=== PATIENT | female | born 1995 | race Caucasian/White ===

== ENCOUNTER 2017-07-02 11:34 | Emergency (ER) | payer OTHER ==
[~2017-07-02] VITALS: Ht 165.1 cm; Wt 52.0 kg
[~2017-07-02 11:34] MED LIST: CALC600T5 PO; IRON45TA2 PO; PREN1TAB17 PO; PREN1TAB62 PO
[2017-07-02 11:37] VITALS: Ht 165.1 cm; Wt 52.0 kg
[2017-07-02] MEDS ORDERED: LIDOCAINE/MYLANTA 40 ML BTL PO STA (11:55)
[2017-07-02] MEDS ORDERED: FAMOTIDINE 20 MG TAB PO STA (11:55)
[2017-07-02] MEDS ORDERED: PRENAT PO (12:27)
[2017-07-02] MEDS ORDERED: FAMO20TA18 PO (12:27)
--- NOTE | 2017-07-02 12:39 | ERD ---
ER Documentation Chief Complaint Date/Time DATE: 07/02/17 TIME: 12:37 Chief Complaint Complains of abdominal pain since last HPI This is a 22-year-old female who presents to the emergency room complaining of epigastric abdominal discomfort. She describes mild burning epigastrium that started yesterday evening. This is usually brought on by food intake. The patient states similar episodes in the past when she was . Her last menstrual period was approximately 2 months ago. She denies any lower abdominal pain or cramping or bleeding. The patient does describe a history of very irregular periods. ROS All systems reviewed and are negative except as per history of present illness. Medications Home Meds Active Scripts Famotidine* (Famotidine*) 20 Mg Tablet, 20 MG PO BID Y for reflux, #60 TAB Prov:ASHWINI MARIE MD 07/02/17 Multivit/Min/Fol Ac/Iron/Pren* ( S*) 1 Tab Tab, 1 TAB PO DAILY, #30 TAB Prov:ASHWINI MARIE MD 07/02/17 Reported Medications Vit-Iron Fumarate-FA ( Vitamin Tablet) 1 Each Tablet, 1 TAB PO DAILY, TAB 11/22/16 Calcium Carbonate (CALCIUM) 600 Mg Tablet, 600 MG PO DAILY 09/18/13 Iron,Carbonyl (IRON) 45 Mg Tablet, 45 MG PO DAILY 09/18/13 Vit-Iron Fumarate-FA ( Tablet) 1 Each Tablet, 1 EACH PO DAILY 09/18/13 Allergies Allergies: Coded Allergies: No Known Allergy (Unverified , 11/22/16) PMhx/Soc Medical and Surgical Hx: pt denies Medical Hx History of Surgery: Yes () Anesthesia Reaction: No Hx Neurological Disorder: No Hx Respiratory Disorders: No Hx Cardiac Disorders: No Hx Psychiatric Problems: No Hx Miscellaneous Medical Probl: No Hx Alcohol Use: No Hx Substance Use: No Hx Tobacco Use: No Smoking Status: Never smoker FmHx Family History: No diabetes Physical Exam Vitals Vital Signs Date Time Temp Pulse Resp B/P Pulse Ox O2 Delivery O2 Flow Rate FiO2 07/02/17 11:37 97.8 59 20 102/56 97 Physical Exam General: Well developed, well nourished, no acute distress Head: Normocephalic, atraumatic. Eyes: Pupils equally reactive, EOM intact ENT: Moist mucous membranes Neck: Supple, no lymphadenopathy Respiratory: Lungs clear bilaterally, no distress Cardiovascular: RRR, no murmurs, rubs, or gallops Abdominal: Soft, non-tender, non-distended, no peritoneal signs, negative Cameron sign, no tenderness to McBurney's point : Deferred MSK: No edema, no unilateral swelling, 5/5 strength Neurologic: Alert and oriented, moving all extremities, normal speech, no focal weakness, no cerebellar signs Skin: No rash Psych: Normal mood Results 24 hrs Current Medications Medications (Trade) Dose Ordered Sig/Cassie Route PRN Reason Start Time Stop Time Status Last Admin Dose Admin Famotidine (Pepcid) 20 mg ONCE STAT PO 07/02/17 11:55 07/02/17 11:58 DC 07/02/17 12:28 Miscellaneous Medication (Gi Cocktail (2)) 40 ml ONCE STAT PO 07/02/17 11:55 07/02/17 11:58 DC 07/02/17 12:28 Procedures/MDM LAB INTERPRETATION: Positive hCG MEDICAL DECISION MAKING: The patient presents with epigastric abdominal discomfort that is most consistent with likely dyspepsia. She has a benign abdominal exam without signs or symptoms of acute cholecystitis, choledocholithiasis or biliary colic. No indication for laboratory testing. The patient does describe similar symptoms with in the past. She has a history of irregular menstrual cycle. ER COURSE: The patient has a positive hCG here. She has a benign abdominal exam with no lower abdominal cramping and no vaginal bleeding. No indication for laboratory testing or ultrasound imaging at this time. No clinical signs of ectopic . The patient was advised to follow-up with primary HOMOGENIZER OPERATOR. She was advised to initiate vitamins and will be started on Pepcid. Pepcid is a class B medication. The patient was given a GI cocktail with improved symptomatology. The patient is safe for discharge at this time. I kept the patient and/or family informed of laboratory and diagnostic imaging results throughout the emergency room course. DISPOSITION PLAN: We discussed follow up with the patient's primary care doctor within 24 to 48 hours as needed. We also discussed return to the emergency room for worsening symptoms or worsening condition. Outpatient referral: HOMOGENIZER OPERATOR Discharge Medications: Pepcid Departure Diagnosis: Primary Impression: Weeks of gestation: unspecified Qualified Code: Z33.1 - , unspecified gestational age Additional Impression: Dyspepsia Condition: Stable Patient Instructions: Gastroesophageal Reflux Disease (GERD), , New Dx Referrals: [facility] YOU HAVE RECEIVED A MEDICAL SCREENING EXAM AND THE RESULTS INDICATE THAT YOU DO NOT HAVE A CONDITION THAT REQUIRES URGENT TREATMENT IN THE EMERGENCY DEPARTMENT. FURTHER EVALUATION AND TREATMENT OF YOUR CONDITION CAN WAIT UNTIL YOU ARE SEEN IN YOUR DOCTORS OFFICE WITHIN THE NEXT 1-2 DAYS. IT IS YOUR RESPONSIBILITY TO MAKE AN APPOINTMENT FOR FOLOW-UP CARE. IF YOU HAVE A PRIMARY DOCTOR --you should call your primary doctor and schedule an appointment IF YOU DO NOT HAVE A PRIMARY DOCTOR YOU CAN CALL OUR PHYSICIAN REFERRAL HOTLINE AT IF YOU CAN NOT AFFORD TO SEE A PHYSICIAN YOU CAN CHOSE FROM THE FOLLOWING [facility] [address] [facility]. [facility] [address] [facility]. [facility] [address] [facility] [address] [facility] [address] [facility]. [facility] [address] [facility]. [facility] YOU HAVE RECEIVED A MEDICAL SCREENING EXAM AND THE RESULTS INDICATE THAT YOU DO NOT HAVE A CONDITION THAT REQUIRES URGENT TREATMENT IN THE EMERGENCY DEPARTMENT. FURTHER EVALUATION AND TREATMENT OF YOUR CONDITION CAN WAIT UNTIL YOU ARE SEEN IN YOUR DOCTORS OFFICE WITHIN THE NEXT 1-2 DAYS. IT IS YOUR RESPONSIBILITY TO MAKE AN APPOINTMENT FOR FOLOW-UP CARE. IF YOU HAVE A PRIMARY DOCTOR --you should call your primary doctor and schedule and appointment IF YOU DO NOT HAVE A PRIMARY DOCTOR YOU CAN CALL OUR PHYSICIAN REFERRAL HOTLINE AT . IF YOU CAN NOT AFFORD TO SEE A PHYSICIAN YOU CAN CHOSE FROM THE FOLLOWING [facility] INSTITUTIONS: [facility] [address] [place] [address] [facility] [address] [place] [address] [facility] [address] [place] [address] HOMOGENIZER OPER[place]BL[place] [address] [facility] [address] [place] [address] OFFICE FAX , [address] [address] [place] [address] [address]. GONZALEZ, [place] [address] [place] [address] DR GUILLORY, [facility] [address] [address] [facility], [address], [facility] [address] [address] ORDAZ, [facility] [address] [facility], [place] [address] [facility] [address] [place] [address] [phone] [facility] [address] - [address] PLUMMER ANGELITA [address], [place] [address] DR BHATT, [facility] [address] [facility]. [address], [place] [address] [facility] [address] [place], [place] [address] Additional Instructions: Call your primary care doctor TOMORROW for an appointment during the next 1 WEEK.Tell the sales secretary that you were referred from this facility.See the doctor sooner or return here if your condition worsens before your appointment time. ASHWINI MARIE MD Jul 02, 2017 12:39
== END 2017-07-02 12:36 | disposition home or self-care (01) ==
LOC: FTE 11:34
DX: R10.13 Epigastric pain (principal); Z33.1 Pregnant state, incidental
CPT/HCPCS: Z7610 ×2; 99283

== ENCOUNTER 2017-07-31 09:59 | Outpatient (CLI) | payer OTHER ==
[~2017-07-31] VITALS: Ht 154.9 cm; Wt 52.9 kg
[~2017-07-31 09:59] MED LIST changes: +FAMO20TA18 PO; +PRENAT PO
[2017-07-31 10:37] VITALS: Ht 154.9 cm; Wt 52.9 kg
[2017-07-31 10:38] VITALS: BP 112/56; PULSE 74; RESP 18
[2017-07-31 11:11] LABS: BASOPHILS % 0.2 % (0.0-2.0); EOSINOPHILS % 0.3 % (0.0-7.0); HEMOGLOBIN 11.4 g/dl (12.0-16.0); LYMPHOCYTES # 1.2 10^3/ul (0.8-2.9); LYMPHOCYTES % 10.1 % (15.0-51.0); MEAN CORPUSCULAR HEMOGLOBIN 30.6 pg (29.0-33.0); MEAN CORPUSCULAR HGB CONC 34.5 g/dl (32.0-37.0); MEAN CORPUSCULAR VOLUME 88.7 fl (82.0-101.0); MEAN PLATELET VOLUME 11.4 fl (7.4-10.4); MONOCYTE # 0.5 10^3/ul (0.3-0.9); MONOCYTES % 4.1 % (0.0-11.0); NEUTROPHILS % 84.9 % (39.0-77.0); PLATELET COUNT 213 10^3/UL (140-415); RED BLOOD COUNT 3.72 10^6/ul (4.20-5.40); RED CELL DISTRIBUTION WIDTH 13.1 % (11.5-14.5); WHITE BLOOD COUNT 11.3 10^3/ul (4.8-10.8)
[2017-07-31 11:17] LABS: ADD UMIC YES; UR ASCORBIC ACID NEGATIVE (NEGATIVE); UR BACTERIA MODERATE /HPF (NONE SEEN); UR BILIRUBIN (Dip) NEGATIVE (NEGATIVE); UR BLOOD (Dip) 3+ mg/dL (NEGATIVE); UR CLARITY SLIGHTLY CLOUDY (CLEAR); UR COLOR RED (YELLOW); UR GLUCOSE (Dip) NEGATIVE (NEGATIVE); UR KETONES (Dip) NEGATIVE (NEGATIVE); UR LEUKOCYTE ESTERASE (Dip) 3+ Leu/ul (NEGATIVE); UR NITRITE (Dip) NEGATIVE (NEGATIVE); UR RBC 52 /HPF (0-5); UR SPECIFIC GRAVITY (Dip) 1.003 (1.003-1.030); UR TOTAL PROTEIN (Dip) 2+ mg/dl (NEGATIVE); UR UROBILINOGEN (Dip) NEGATIVE (NEGATIVE); UR WBC CLUMPS FEW /HPF (NONE SEEN)
[2017-07-31 11:32] LABS: BARBITURATES Negative (NEGATIVE); BENZODIAZEPINES Negative (NEGATIVE); CANNABINOIDS Negative (NEGATIVE); COCAINE Negative (NEGATIVE); OPIATES Negative (NEGATIVE)
[2017-07-31 11:42] LABS: ALBUMIN/GLOBULIN RATIO 1.17; BILIRUBIN,INDIRECT 0.9 mg/dl (0-1.1); BILIRUBIN,TOTAL 0.9 mg/dl (0.2-1.3); CALCIUM 9.2 mg/dl (8.4-10.2); CREATININE 0.58 mg/dl (0.44-1.00); POTASSIUM 3.5 mmol/L (3.5-5.1); TOTAL PROTEIN 7.4 g/dl (6.1-8.1)
--- NOTE | 2017-07-31 11:58 | RADRPT ---
PROCEDURE: US OB AND ULTRASOUND CERVIX. CLINICAL INDICATION: Size and dates , no care TECHNIQUE: Multiple sonographic images of the pelvis and gravid uterus were obtained. The images were reviewed on a PACS workstation. Transvaginal images of the cervix were also obtained. COMPARISON: No prior studies are available for comparison. FINDINGS: The internal os is dilated to 7 mm. There is soft tissue material noted near the region of the inte rnal os. The cervix length measures 1.5 cm. There is a single viable intrauterine gestation. Cardiac activity is present with 144 beats per min isis. There is a transverse maternal left presentation. The placenta is posterior fundal. There is no evidence for an abruption or placenta previa. Measurements were made in order to determine age. The results are as follows: BPD =4.3 cm HC =16.4 cm AC =13.6 cm FL =2.8 cm Estimated gestational age of approximately 18 weeks and 6 days based on ultrasound measurements. The estimated date of delivery is 12/26/17, based on ultrasound measurements. The EFW = 257 g. RPTAT: AA IMPRESSION: Single viable intrauterine gestation of approximately 18 weeks and 6 days based on ultrasound measu rements. Internal os is dilated to 7 mm. Small amount of soft tissue noted in the region of the internal os. Cervix is short measuring 1.5 cm in length. .Ray Rowley MD, MD Date Time Electronically viewed and signed by .Ray Rowley MD, MD on 07/31/2017 11:58 .S/
--- NOTE | 2017-07-31 12:33 | TRIAGE ---
OB Triage Datetime Report Generated by CPN: 07/31/2017 12:32 Datetime: 07/31/2017 11:00 Heart Rate Monitor Mode: Doppler Comments: FHT'S DOPPLED IN THE 150'S. Datetime: 07/31/2017 10:32 Labor Evaluation Monitor Mode: External Datetime: 07/31/2017 10:26 Assessment Type: Triage Maternal Assessment Level of Consciousness: Fully Conscious DTR's/Clonus: DTRs 2+; No Clonus Headache: Denies Blurred Vision: No Respiratory Effort: Unlabored; Regular Rhythm; Equal Expansion Breath Sounds, Left: Clear and Equal Breath Sounds, Right: Clear and Equal Nausea/Vomiting: Denies RUQ Epigastric Pain: Denies Lower Extremities Edema: None Degree: None Upper Extremities Edema: None Degree: None Facial Edema: None Fall Risk Assessment History of Falling: (0) No Secondary Diagnosis: (0) No Ambulatory Aid: (0) Bedrest/Nurse Assist IV Therapy: (0) No Gait: (0) Normal/Bedrest/Immobile Mental Status: (0) Oriented to Own Ability Fall Score: 0 Fall Risk Score Definition: No Risk: No action required Datetime: 07/31/2017 10:24 Time of Arrival: 07/31/2017 09:51 EGA: 25.0 Arrived By: Ambulatory Arrived From: Home Chief Complaint: PT HERE C/O VAG. PRESSURE AND BLEEDING WITH URINATION Movement: Absent Contractions: Denies/Absent Rupture of Membranes: Denies Vaginal Bleeding: None Vaginal Discharge: Denies Recent Sexual Intercouse: Denies Abdominal Trauma: Not Applicable Patient Complaints: None Time Provider Notified: 07/31/2017 10:15 Provider Notified: FOROOHAR Initial Plan: EFW, CVL, UA, CBC, CMP Datetime: 07/31/2017 10:19 Vaginal Exam Dilatation (cms): 1.0 Exam By: FOROOHAR Datetime: 07/31/2017 10:13 Labor Evaluation Monitor Mode: External Heart Rate Monitor Mode: External US Comments: unable to obtain FHT'S ON NOTIFIED U/S. ORDERED.
--- NOTE | 2017-07-31 12:59 | CONS ---
Date/Time of Note Date/Time of Note DATE: 07/31/17 TIME: 12:44 Consultation Date/Type/Reason Admit Date/Time July 31, 2017 OB triage consult Reason for Consultation . This patient is a 22 years old 4 para 2 1 who does not know exactly how far she is she came in due to pressure and burning with urination On examination she appears to be a woman in no acute distress. Her main complaint is lower abdominal pain and a slightly back pain and pinkish vaginal discharge Her general vital signs are normal with blood pressure of 112/56, pulse rate of 74 respiration 18, temperature 98.4, and oxygen saturation, 98% in room temperature Her abdomen is soft slight tenderness of the suprapubic area heart tone is audible fundus measures about 19 cm no CVA tenderness on pelvic examination the external office was open however the internal loss close the uterus appears to be about 20 weeks size Laboratory Tests Test 07/31/17 09:15 07/31/17 10:48 Urine Color RED Urine Clarity SLIGHTLY CLOUDY Urine pH 7.0 Urine Specific [place] 1.003 Urine Ketones NEGATIVEmg/dL Urine Nitrite NEGATIVEmg/dL Urine Bilirubin NEGATIVEmg/dL Urine Urobilinogen NEGATIVEmg/dL Urine Leukocyte Esterase 3+Carol/ul Urine Microscopic RBC 52/HPF Urine Microscopic WBC 170/HPF Urine Bacteria MODERATE/HPF Urine Hemoglobin 3+mg/dL Urine Glucose NEGATIVEmg/dL Urine Total Protein 2+mg/dl Urine Opiates Screen Negative Urine Barbiturates Negative Urine Amphetamines Screen Negative Urine Benzodiazepines Screen Negative Urine Cocaine Screen Negative Urine Cannabinoids Negative White Blood Count 11.310^3/ul Red Blood Count 3.7210^6/ul Hemoglobin 11.4g/dl Hematocrit 33.0% Mean Corpuscular Volume 88.7fl Mean Corpuscular Hemoglobin 30.6pg Mean Corpuscular Hemoglobin Concent 34.5g/dl Red Cell Distribution Width 13.1% Platelet Count 57378^3/UL Mean Platelet Volume 11.4fl Neutrophils % 84.9% Lymphocytes % 10.1% Monocytes % 4.1% Eosinophils % 0.3% Basophils % 0.2% Nucleated Red Blood Cells % 0.0/100WBC Neutrophils # (Manual) 9.610^3/ul Lymphocytes # 1.210^3/ul Monocytes # 0.510^3/ul Eosinophils # 0.010^3/ul Basophils # 0.010^3/ul Nucleated Red Blood Cells # 0.010^3/ul Sodium Level 140mmol/L Potassium Level 3.5mmol/L Chloride Level 106mmol/L Carbon Dioxide Level 24mmol/L Anion Gap 14 Blood Urea Nitrogen 9mg/dl Creatinine 0.58mg/dl Glucose Level 80mg/dl Calcium Level 9.2mg/dl Total Bilirubin 0.9mg/dl Direct Bilirubin 0.00mg/dl Indirect Bilirubin 0.9mg/dl Aspartate Amino Transf (AST/SGOT) 18IU/L Alanine Aminotransferase (ALT/SGPT) 22IU/L Alkaline Phosphatase 68IU/L Total Protein 7.4g/dl Albumin 4.0g/dl Globulin 3.40g/dl Albumin/Globulin Ratio 1.17 Constitutional: No chills, No diaphoresis, No disoriented, No febrile, No improved, No no complaints, No other, No poor po, No requiring IVF, No requiring O2 Eyes: No discharge, No no complaints, No other, No pain, No redness, No visual change ENT: No bleeding, No congestion, No discharge, No dysphagia, No no complaints, No other, No pain, No sore throat Respiratory: No cough, No no complaints, No other, No pain, No pleuritic pain, No shortness of breath, No sputum, No wheezing Cardiovascular: No chest pain, No edema, No lightheadedness, No no complaints, No orthopenea, No other, No palpitations, No paroxysmal nocturnal dyspnea Gastrointestinal: other (As I mentioned the cervix is about less than 1 finger dilated no bloody discharge on examination the uterus appears to be around 20 weeks size), No blood, No constipation, No decreased appetite, No diarrhea, No flatus, No nausea, No no complaints, No pain, No passing stool, No vomiting Genitourinary: No bleeding, No discharge, No dysuria, No flank pain, No hematuria, No no complaints, No other Musculoskeletal: No back pain, No bone/joint pain, No neck pain, No no complaints, No other, No restricted range of motion, No swelling Skin: No bruising, No erythema, No laceration, No no complaints, No other, No pruritis, No rash, No skin lesions Neurologic: No confusion, No dizziness, No focal-weakness, No headache, No no complaints, No other, No seizure, No syncope Endocrine: No dry skin, No no complaints, No other, No polydypsia, No polyuria , No temp intolerance Additional Comments On ultrasound study the report with intrauterine with gestational age of about 18 weeks and 6 days a single viable intrauterine gestation with cardiac activity 144 bpm the cervical length was 1.5 cm estimated weight was 257 g With these finding a prescription was given for Macrobid 100 mg tablet #20 to be taken 1 tablet every 12 hours. The urine specimen was sent for culture and sensitivity. Patient is advised to contact the clinic for the result of the culture and sensitivity with possible change of antibiotic if indicated. Also she was advised to find her doctor started her care and give these results of the urine test to her new position. End of dictation thank you Social History Smoking Status: Never smoker Exam/Review of Systems Vital Signs Vitals Vital Signs Date Time Temp Pulse Resp B/P Pulse Ox O2 Delivery O2 Flow Rate FiO2 07/31/17 10:38 74 18 112/56 98 Room Air Results Result Diagram: 07/31/17 1048 07/31/17 1048 Results 24 hrs Laboratory Tests Test 07/31/17 09:15 07/31/17 10:48 Urine Color RED Urine Clarity SLIGHTLY CLOUDY A Urine pH 7.0 Urine Specific [place] 1.003 Urine Ketones NEGATIVE Urine Nitrite NEGATIVE Urine Bilirubin NEGATIVE Urine Urobilinogen NEGATIVE Urine Leukocyte Esterase 3+ H Urine Microscopic RBC 52 H Urine Microscopic WBC 170 H Urine Bacteria MODERATE Urine Hemoglobin 3+ H Urine Glucose NEGATIVE Urine Total Protein 2+ H Urine Opiates Screen Negative Urine Barbiturates Negative Urine Amphetamines Screen Negative Urine Benzodiazepines Screen Negative Urine Cocaine Screen Negative Urine Cannabinoids Negative White Blood Count 11.3 #H Red Blood Count 3.72 #L Hemoglobin 11.4 #L Hematocrit 33.0 #L Mean Corpuscular Volume 88.7 Mean Corpuscular Hemoglobin 30.6 Mean Corpuscular Hemoglobin Concent 34.5 Red Cell Distribution Width 13.1 Platelet Count 213 Mean Platelet Volume 11.4 H Neutrophils % 84.9 H Lymphocytes % 10.1 L Monocytes % 4.1 Eosinophils % 0.3 Basophils % 0.2 Nucleated Red Blood Cells % 0.0 Neutrophils # (Manual) 9.6 H Lymphocytes # 1.2 Monocytes # 0.5 Eosinophils # 0.0 Basophils # 0.0 Nucleated Red Blood Cells # 0.0 Sodium Level 140 Potassium Level 3.5 Chloride Level 106 Carbon Dioxide Level 24 Anion Gap 14 Blood Urea Nitrogen 9 Creatinine 0.58 Glucose Level 80 Calcium Level 9.2 Total Bilirubin 0.9 Direct Bilirubin 0.00 Indirect Bilirubin 0.9 Aspartate Amino Transf (AST/SGOT) 18 Alanine Aminotransferase (ALT/SGPT) 22 Alkaline Phosphatase 68 Total Protein 7.4 Albumin 4.0 Globulin 3.40 H Albumin/Globulin Ratio 1.17 JONE GUILLORY MD Jul 31, 2017 12:54
== END 2017-07-31 12:40 | disposition home or self-care (01) ==
LOC: OBT 09:59 → L-D 09:59 → OBT 12:40
DX: O26.842 Uterine size-date discrepancy, second trimester (principal); Z3A.18 18 weeks gestation of pregnancy
CPT/HCPCS: 36415; 76815; 76817; 80053; 80307; 81001; 85025; 87086; Z7500; G0463

== ENCOUNTER 2017-08-08 21:03 | Inpatient (IN) | payer OTHER ==
[~2017-08-08] VITALS: Ht 152.4 cm; Wt 55.3 kg
[2017-08-08 21:19] VITALS: Ht 152.4 cm; Wt 55.3 kg
[2017-08-08 21:20] VITALS: BP 108/63; PULSE 71; RESP 18
[2017-08-08] MEDS ORDERED: CEPH500C PO (21:23)
[2017-08-08] MEDS ORDERED: METHYLERGONOVINE 0.2 MG INJ IM PRN (22:30)
[2017-08-08] MEDS ORDERED: LIDOCAINE 1% (MPF) 30 ML INJ INJ PRN (22:30)
[2017-08-08] MEDS ORDERED: OXYTOCIN 30 UNITS/LR 500 ML IV PRN (22:30)
[2017-08-08] MEDS ORDERED: CARBOPROST 250 MCG INJ IM PRN (22:30)
[2017-08-08] MEDS ORDERED: LACTATED RINGER'S 1,000 ML IV PRN (22:30)
[2017-08-08] MEDS ORDERED: IBUPROFEN 600 MG TAB PO PRN (22:30)
[2017-08-08] MEDS ORDERED: MISOPROSTOL 200 MCG TAB PR PRN (22:30)
[2017-08-08] MEDS ORDERED: OXYTOCIN 30 UNITS/LR 500 ML IV SCH (22:30)
--- NOTE | 2017-08-08 22:40 | HP ---
Date/Time of Note Date/Time of Note DATE: 08/08/17 TIME: 22:40 OB - History Hx of Present Free Text/Dictation 08/08/2017 Chief Complaint: Feels a bulge inside the vagina and pelvic pressure. Estimated Due Date: Aug 25, 2017 : 4 Para: 2 Spontaneous : 1 Care: None Other Concerns: 32-year-old with IUP at 20 weeks and 1 day with no care presented to the hospital with a complaint of feeling bulge in the introitus and vaginal canal when she wipes herself as well as leaking some fluid. She had been seen about a week ago in triage with complaint of spotting and was noted to have UTI. She was sent home with Keflex. Cervical length at that time was 1.5 cm. KELVIN by only ultrasound is December 25 2017. Patient just sent up for her first visit next week. Had no care labs or any evaluation done before. Past Family/Social History * Past Medical, Surgical, Family and Obstetric Histories reviewed from chart. OB Admission Exam Vital Signs Vital Signs Vital Signs Date Time Temp Pulse Resp B/P Pulse Ox O2 Delivery O2 Flow Rate FiO2 08/08/17 21:20 98.4 71 18 108/63 Room Air Physical Exam HEENT: WNL Abdomen: WNL Extremities: Normal Cervical Dilatation: 9cm Effacement: Other (80%) Station: Other (BBOW at + 2 station noted. Nitrzaine Equivocal. Pooling negative. ) Membranes: Intact OB Assessment/Plan Other Assessment: IUP at 20 weeks and 1 day inevitable due to advanced cervical dilatation Cervical incompetence. Nonviable I have discussed with the patient in detail about current physical exam findings Options including expectant management with a spontaneous expulsion of productive conception versus placing the patient in Trendelenburg position with expectant management, with possible increased risk of spontaneous rupture of membrane at pre-viability risk of infections and complications discussed with the patient So option for Pitocin augmentation discussed with the patient Not a candidate for rescue cerclage at this point Pros and cons of each discussed in detail Increased risk of complication of with premature rupture membrane at extreme prematurity discussed with the patient Verbalized understanding above discussion Desires to proceed with expectant management Will be admitted Labs including CBC type and screen IV fluids Expectant management SALONI HOLCOMB MD Aug 08, 2017 22:40
[2017-08-08] MEDS: LACTATED RINGER'S 1,000 ML IV SCH (23:07)
--- NOTE | 2017-08-08 23:32 | TRIAGE ---
OB Triage Datetime Report Generated by CPN: 08/08/2017 23:31 Datetime: 08/08/2017 23:20 Assessment Type: Admission Assessment Vaginal Bleeding: None Maternal Assessment Level of Consciousness: Fully Conscious DTR's/Clonus: DTRs 2+; No Clonus Headache: Denies Blurred Vision: No Respiratory Effort: Unlabored; Regular Rhythm; Equal Expansion Breath Sounds, Left: Clear and Equal Breath Sounds, Right: Clear and Equal Nausea/Vomiting: Denies RUQ Epigastric Pain: Denies Lower Extremities Edema: None Degree: None Upper Extremities Edema: None Degree: None Facial Edema: None Fall Risk Assessment History of Falling: (0) No Secondary Diagnosis: (0) No Ambulatory Aid: (0) Bedrest/Nurse Assist IV Therapy: (0) No Gait: (0) Normal/Bedrest/Immobile Mental Status: (0) Oriented to Own Ability Fall Score: 0 Fall Risk Score Definition: No Risk: No action required Pain Assessment Pain Scale: 0 Pain Presence: None/Denies Pain Type: N/A Pain Goal: 2 Membrane Status: Bulging Datetime: 08/08/2017 22:49 Labor Evaluation Frequency: NONE Monitor Mode: External Resting Tone [place]: Relaxed Heart Rate FHR Baseline Rate: 150 Monitor Mode: External US Variability: Moderate 6-25 bpm Decelerations: None Category: Category I Datetime: 08/08/2017 22:00 Labor Evaluation Frequency: NONE Monitor Mode: External Pattern: Normal: <= 5 Contractions in 10 Minutes Resting Tone [place]: Relaxed Heart Rate FHR Baseline Rate: 150 Variability: Minimal - Undetectable to <=5 bpm Accelerations: 15X15 Decelerations: Variable Category: Category I Comments: APPROPRIATE FOR GESTATIONAL AGE Pain Presence: None/Denies Datetime: 08/08/2017 21:44 Vaginal Exam Dilatation (cms): 9.5 Effacement (%): 90 Station: 2 Exam By: ZHANG Membrane Status: Bulging Pool: Negative Nitrazine: Negative Cervix, Consistency: Soft Cervix, Position: Midposition Presentation 'A': Unable to Assess Datetime: 08/08/2017 21:29 Time of Arrival: 08/08/2017 21:00 EGA: 20.0 Arrived By: Wheelchair Arrived From: Home Chief Complaint: PATIENT STATES THAT WHEN SHE WIPES SHE CONSTANTLY HAD FLUID COMING OUT. SHE ALSO FEELS A SOFT BALLOON LIKE OBJECT IN HER VAGINAL CANAL Contractions: Denies/Absent Rupture of Membranes: Unsure Vaginal Bleeding: None Vaginal Discharge: Denies Recent Sexual Intercouse: Denies Abdominal Trauma: Not Applicable Patient Complaints: Other Time Provider Notified: 08/08/2017 21:14 Provider Notified: ZHANG Initial Plan: STERILE SPEC, VAGINAL EXAM Datetime: 08/08/2017 21:14 Stage of : OB Triage Assessment Type: Triage Temperature Route: Oral Pain Assessment Pain Scale: 0 Pain Presence: None/Denies Datetime: 08/08/2017 21:11 Maternal Assessment Level of Consciousness: Fully Conscious DTR's/Clonus: DTRs 2+; No Clonus Headache: Denies Blurred Vision: No Respiratory Effort: Unlabored; Regular Rhythm; Equal Expansion Breath Sounds, Left: Clear and Equal Breath Sounds, Right: Clear and Equal Nausea/Vomiting: Denies RUQ Epigastric Pain: Denies Facial Edema: None Fall Risk Assessment History of Falling: (0) No Secondary Diagnosis: (0) No Ambulatory Aid: (0) Bedrest/Nurse Assist IV Therapy: (0) No Gait: (0) Normal/Bedrest/Immobile Mental Status: (0) Oriented to Own Ability Fall Score: 0 Fall Risk Score Definition: No Risk: No action required Monitor Mode: External Contraction Comments: MONITORS APPLIED Monitor Mode: External US Comments: MONITORS APPLIED Datetime: 07/31/2017 12:30 Stage of : OB Triage Maternal Assessment Level of Consciousness: Fully Conscious Labor Evaluation Frequency: NONE Monitor Mode: External Resting Tone [place]: Relaxed Pain Assessment Pain Scale: 3 Pain Goal: 3 Membrane Status: Intact Vaginal Bleeding: None Datetime: 07/31/2017 11:30 Stage of : OB Triage Maternal Assessment Level of Consciousness: Fully Conscious Labor Evaluation Frequency: 1UC/HR Monitor Mode: External Duration (sec)2399: 60 Quality: Mild Resting Tone [place]: Relaxed Monitor Mode: Doppler (Annotations: FHT'S DOPPLED IN THE 150'S) Pain Assessment Pain Scale: 3 Pain Goal: 3 Membrane Status: Intact Vaginal Bleeding: None Datetime: 07/31/2017 10:26 Fall Score: 0 Fall Risk Score Definition: No Risk: No action required Datetime: 07/31/2017 10:24 EGA: 18.6
[2017-08-08 23:33] LABS: BASOPHILS % 0.3 % (0.0-2.0); EOSINOPHILS # 0.1 10^3/ul (0.0-0.5); EOSINOPHILS % 0.8 % (0.0-7.0); HEMATOCRIT 32.9 % (37.0-47.0); HEMOGLOBIN 11.2 g/dl (12.0-16.0); LYMPHOCYTES # 1.7 10^3/ul (0.8-2.9); LYMPHOCYTES % 21.7 % (15.0-51.0); MEAN CORPUSCULAR HEMOGLOBIN 30.9 pg (29.0-33.0); MEAN CORPUSCULAR VOLUME 90.6 fl (82.0-101.0); MEAN PLATELET VOLUME 11.6 fl (7.4-10.4); MONOCYTE # 0.6 10^3/ul (0.3-0.9); MONOCYTES % 7.5 % (0.0-11.0); NEUTROPHIL # 5.4 10^3/ul (1.6-7.5); NEUTROPHILS % 69.2 % (39.0-77.0); PLATELET COUNT 212 10^3/UL (140-415); RED BLOOD COUNT 3.63 10^6/ul (4.20-5.40); RED CELL DISTRIBUTION WIDTH 13.1 % (11.5-14.5); WHITE BLOOD COUNT 7.8 10^3/ul (4.8-10.8)
[2017-08-08 23:48] LABS: INR 1.13; PROTIME 14.5 Sec (12.2-14.2); PT RATIO 1.1
[2017-08-08 23:49] LABS: PARTIAL THROMBOPLASTIN TIME 37.5 Sec (25.0-35.0)
--- NOTE | 2017-08-08 23:51 | RADRPT ---
PROCEDURE: Obstetrical ultrasound, limited. CLINICAL INDICATION: Pelvic pain. TECHNIQUE: Multiple sonographic images of the pelvis were obtained using transabdominal technique . Images were obtained with boyd scale and color Doppler. The images were reviewed on a PACS works [employer]. COMPARISON: 07/31/2017. FINDINGS: There is a single living intrauterine gestation with the fetus in a vertex presentation. hear t tones of 152 beats per minute are identified. The placenta is posterior and left lateral in locat ion, grade 1. The cervix is open. There is no evidence of placenta previa or abruption. Measurements were made in order to determine age. The results are as follows: BPD =4.42 cm HC =17.12 cm AC =15.15 cm FL =3.33 cm. Estimated gestational age of approximately 20 weeks and 0 days. The estimated date of delivery is 12/26/2017. The EFW = 345 +/- 52 grams. Estimated weight percentage equals 62.9%. IMPRESSION: Single viable intrauterine gestation of approximately 20 weeks and 0 days, with an ultrasound KELVIN of 12/26/2017. Open cervix. A call report was made to the patient's jon nurse ([place]) at 11:50 p.m. .Brian Araya MD, MD Date Time Electronically viewed and signed by .Brian Araya MD, MD on 08/08/2017 23:51 .T/
[2017-08-09 02:10] LABS: BARBITURATES Negative (NEGATIVE); BENZODIAZEPINES Negative (NEGATIVE); CANNABINOIDS Negative (NEGATIVE); COCAINE Negative (NEGATIVE); OPIATES Negative (NEGATIVE)
[2017-08-09] MEDS: BUTORPHANOL 2 MG INJ IV PRN ×3 (06:12→19:49)
[2017-08-09] MEDS: LACTATED RINGER'S 1,000 ML IV SCH ×2 (07:21→15:38)
[2017-08-09] MEDS: CEPHALEXIN 500 MG CAP PO SCH ×2 (09:05→21:00)
--- NOTE | 2017-08-09 10:59 | SIPON ---
Date/Time of Note Date/Time of Note DATE: 08/09/17 TIME: 10:56 Operative Report Free Text/Dictation retained POC. pt status post dc and iud placement yesterday and now with heavy vagianl bleeding Preoperative Diagnosis retained POC Postoperative Diagnosis retained POC Operation/Procedure Performed 1)removal of IUD 2)dilation and evacuation Surgeon: JONATHAN CRAWFORD MD Anesthesia Type: general Estimated Blood Loss: 100 - 150 ml's Transfusion Required: no Specimens IUD 2)products of conception Grafts/Implants NO Complications: no JONATHAN CRAWFORD MD Aug 09, 2017 10:59
[2017-08-09] MEDS ORDERED: LACTATED RINGER'S 1,000 ML IV SCH (11:30)
[2017-08-09] MEDS ORDERED: MISOPROSTOL 200 MCG TAB SL ONE (12:00)
--- NOTE | 2017-08-09 18:36 | QN ---
Documentation Comment pt with advanced labor with prolapsing membranes in vagina and os open 2 -3 cm discussed options with patient and pt desires to proceed with augmentation of labor. discussed since pt had ho of c/sX2 there is a small chance of uterine rupture at 20 weeks but pt understood and desired to be induced. option of expectant management also discussed. a/p iup 20 weeks labor/advanced labor with prolapsing membranes and os 2-3 cm will start with cytotec 100 augmentation JONATHAN CRAWFORD MD Aug 09, 2017 18:36
[2017-08-09] MEDS ORDERED: MEPERIDINE 25 MG INJ IV ONE (21:30)
[2017-08-09] MEDS ORDERED: MEPERIDINE 50 MG INJ IV ONE (21:30)
[2017-08-09] MEDS: OXYTOCIN 30 UNITS/LR 500 ML IV SCH (23:25)
[2017-08-10] MEDS: OXYTOCIN 30 UNITS/LR 500 ML IV SCH (00:51)
[2017-08-10] MEDS ORDERED: OXYTOCIN 30 UNITS/LR 500 ML IV SCH (02:28)
[2017-08-10] MEDS ORDERED: LACTATED RINGER'S 1,000 ML IV* SCH (02:28)
[2017-08-10] MEDS ORDERED: BENZOCAINE 20% 56 ML SPRAY TOP PRN ×2 (02:30→07:00)
[2017-08-10] MEDS ORDERED: MISOPROSTOL 200 MCG TAB PR PRN ×2 (02:30→07:00)
[2017-08-10] MEDS ORDERED: ZOLPIDEM 5 MG TAB PO PRN ×2 (02:30→07:00)
[2017-08-10] MEDS ORDERED: CARBOPROST 250 MCG INJ IM PRN ×2 (02:30→07:00)
[2017-08-10] MEDS ORDERED: OXYCODONE/ASPIRIN (4.88/325) TAB PO PRN ×4 (02:30→07:00)
[2017-08-10] MEDS ORDERED: METHYLERGONOVINE 0.2 MG INJ IM PRN ×2 (02:30→07:00)
[2017-08-10] MEDS ORDERED: WITCH HAZEL/GLYCERIN PAD PR PRN ×2 (02:30→07:00)
[2017-08-10] MEDS ORDERED: LANOLIN 7 GM TUBE TOP PRN ×2 (02:30→07:00)
[2017-08-10] MEDS ORDERED: OXYTOCIN 30 UNITS/LR 500 ML IV PRN ×2 (02:30→07:00)
[2017-08-10] MEDS ORDERED: NACL 0.9% 3 ML SYG IV SCH (03:00)
[2017-08-10] MEDS ORDERED: HYDROCODONE/APAP (5/325) TAB PO PRN ×2 (03:00)
[2017-08-10] MEDS ORDERED: IBUPROFEN 600 MG TAB PO PRN (03:00)
--- NOTE | 2017-08-10 03:54 | LDN ---
Date/Time of Note Date/Time of Note DATE: 08/10/17 TIME: 03:50 Delivery Summary normal vaginal delivery of fetus 278gm cytotec 50mcg placenta expelled spontaneously Weeks of Gestation 20w3d Placenta Delivered: Spontaneously Meconium: none Episiotomy: No Anesthesia type: None Estimated blood loss: 200 Sponge & Needle done & correct: Yes All needle counts correct: Yes Any foreign bodies felt in the: No Problems: Delivery Information Sex Sex: male Apgars 1 Minute: 0 5 Minute: 0 10 Minute: 0 Suctioning Nose & mouth suctioned at patricia: No Delee suction performed: No Umbilical Cord Cord presentations: no nuchal cord Cord Blood was obtained: No Mother & Baby Disposition Disposition Mom & Baby to Maternity; Good: No Mom transferred to: Antepartum Baby to NICU: No ADELA LEBLANC MD Aug 10, 2017 03:54
[2017-08-10 04:39] VITALS: BP 118/66; PULSE 73; RESP 20
[2017-08-10] MEDS ORDERED: IBUPROFEN 600 MG TAB PO SCH (06:00)
[2017-08-10 06:55] LABS: BASOPHILS % 0.2 % (0.0-2.0); EOSINOPHILS % 0.2 % (0.0-7.0); HEMATOCRIT 25.7 % (37.0-47.0); HEMOGLOBIN 8.8 g/dl (12.0-16.0); LYMPHOCYTES # 1.3 10^3/ul (0.8-2.9); LYMPHOCYTES % 14.4 % (15.0-51.0); MEAN CORPUSCULAR HEMOGLOBIN 30.9 pg (29.0-33.0); MEAN CORPUSCULAR HGB CONC 34.2 g/dl (32.0-37.0); MEAN CORPUSCULAR VOLUME 90.2 fl (82.0-101.0); MEAN PLATELET VOLUME 11.9 fl (7.4-10.4); MONOCYTE # 0.5 10^3/ul (0.3-0.9); MONOCYTES % 5.9 % (0.0-11.0); PLATELET COUNT 164 10^3/UL (140-415); RED BLOOD COUNT 2.85 10^6/ul (4.20-5.40); RED CELL DISTRIBUTION WIDTH 12.9 % (11.5-14.5); WHITE BLOOD COUNT 8.8 10^3/ul (4.8-10.8)
[2017-08-10] MEDS: IBUPROFEN 600 MG TAB PO SCH ×3 (06:56→17:37)
[2017-08-10] MEDS ORDERED: CEPHALEXIN 500 MG CAP PO SCH (09:00)
[2017-08-10] MEDS ORDERED: SENNA/DOCUSATE NA (8.6MG/50MG) TAB PO SCH ×2 (09:00)
[2017-08-10 09:20] VITALS: BP 102/55; PULSE 60; RESP 16
[2017-08-10 12:27] VITALS: BP 104/57; PULSE 63; RESP 16
[2017-08-10 12:49] VITALS: BP 114/69; PULSE 67; RESP 20
[2017-08-10 13:56] LABS: RUBELLA ANTIBODY - IGG 1.44 index
[2017-08-10 16:30] VITALS: BP 95/52; PULSE 64; RESP 20
--- NOTE | 2017-08-10 19:49 | QN ---
Documentation Comment patient is stable afebrile No Vb +FM +voids VS stable Gen NAD Abd soft NT ND Genitalai No blood at perinium --->discharge Home OPHELIA SIERRA M.D. Aug 10, 2017 19:49
--- NOTE | 2017-08-10 19:51 | DS ---
Date/Time of Note Date/Time of Note DATE: 08/10/17 TIME: 19:50 Discharge Summary Admission/Discharge Info Admit Date/Time Aug 08, 2017 at 21:44 Discharge Date/Time Aug 10, 2017 at 19:00 Discharge Diagnosis Patient Condition: Good Hospital Course uneventful IUFD Home Meds Reported Medications Cephalexin* (Cephalexin*) 500 Mg Capsule, 500 MG PO BID, #28 CAP 08/08/17 Primary Care Provider Not On Staff Doctor Pending Labs Laboratory Tests Test 08/10/17 06:01 White Blood Count 8.810^3/ul (4.8-10.8) Red Blood Count 2.8510^6/ul (4.20-5.40) Hemoglobin 8.8g/dl (12.0-16.0) Hematocrit 25.7% (37.0-47.0) Mean Corpuscular Volume 90.2fl (82.0-101.0) Mean Corpuscular Hemoglobin 30.9pg (29.0-33.0) Mean Corpuscular Hemoglobin Concent 34.2g/dl (32.0-37.0) Red Cell Distribution Width 12.9% (11.5-14.5) Platelet Count 97549^3/UL (140-415) Mean Platelet Volume 11.9fl (7.4-10.4) Neutrophils % 79.0% (39.0-77.0) Lymphocytes % 14.4% (15.0-51.0) Monocytes % 5.9% (0.0-11.0) Eosinophils % 0.2% (0.0-7.0) Basophils % 0.2% (0.0-2.0) Nucleated Red Blood Cells % 0.0/100WBC (0.0-0.0) Neutrophils # 7.010^3/ul (1.6-7.5) Lymphocytes # 1.310^3/ul (0.8-2.9) Monocytes # 0.510^3/ul (0.3-0.9) Eosinophils # 0.010^3/ul (0.0-0.5) Basophils # 0.010^3/ul (0.0-0.1) Nucleated Red Blood Cells # 0.010^3/ul (0.0-0.0) OPHELIA SIERRA M.D. Aug 10, 2017 19:51
[2017-08-12] MEDS ORDERED: DIPHTH/TET/ACEL PERTUSS (ADULT) 0.5 ML VIAL IM* ONE ×2 (09:00)
== END 2017-08-10 19:00 | disposition home or self-care (01) | DRG 775 ==
LOC: OBT 21:03 → L-D 21:06 → OBT 21:44 → OBG 08-10 04:27
PROVIDERS: ADMIT Obstetrics & Gynecology Obstetrics; ATTEND Obstetrics & Gynecology Obstetrics
PROC: 10E0XZZ Delivery of Products of Conception, External Approach (ICD-10-PCS; principal; 2017-08-10)
PROC: 3E033VJ Introduction of Other Hormone into Peripheral Vein, Percutaneous Approach (ICD-10-PCS; 2017-08-10)
DX: O60.12X0 Preterm labor second trimester with preterm delivery second trimester, not applicable or unspecified (principal); Z37.1 Single stillbirth; Z3A.20 20 weeks gestation of pregnancy
CPT/HCPCS: 76816; 80307; 84112; 85025; 85610; 85730; 86592; 86703; 86762; 86850; 86900; 86901; 87086; 87340; 88307; G0463; J0595; J2175; J2590; J7120

== ENCOUNTER 2019-01-29 12:43 | Emergency (ER) | payer OTHER ==
[~2019-01-29] VITALS: Wt 63.4 kg
[~2019-01-29 12:43] MED LIST changes: -CALC600T5 PO; +CEPH500C PO; -FAMO20TA18 PO; -IRON45TA2 PO; -PREN1TAB17 PO; -PREN1TAB62 PO; -PRENAT PO
--- NOTE | 2019-01-29 16:32 | ERD ---
ER Documentation Chief Complaint Chief Complaint 15 wks : no HB detected per Dr. Delgadillo needs US. no sx ROS All systems reviewed and are negative except as per history of present illness. Medications Home Meds Reported Medications Cephalexin* (Cephalexin*) 500 Mg Capsule, 500 MG PO BID, #28 CAP 08/08/17 Allergies Allergies: Coded Allergies: No Known Allergy (Unverified , 08/08/17) PMhx/Soc History of Surgery: Yes () Anesthesia Reaction: No Hx Neurological Disorder: No Hx Respiratory Disorders: No Hx Cardiac Disorders: No Hx Psychiatric Problems: No Hx Miscellaneous Medical Probl: No Hx Alcohol Use: No Hx Substance Use: No Hx Tobacco Use: No Physical Exam Vitals Vital Signs Date Temp Pulse Resp B/P (MAP) Pulse Ox O2 O2 Flow FiO2 Time Delivery Rate 01/29/19 97.0 57 16 102/59 99 12:52 (73) Physical Exam Const: No acute distress Head: Atraumatic Eyes: Normal Conjunctiva ENT: Normal External Ears, Nose and Mouth. Neck: Full range of motion. No meningismus. Resp: Clear to auscultation bilaterally Cardio: Regular rate and rhythm, no murmurs Abd: Soft, non tender, non distended. Normal bowel sounds Skin: No petechiae or rashes Back: No midline or flank tenderness Ext: No cyanosis, or edema Neur: Awake and alert Psych: Normal Mood and Affect Departure Diagnosis: Primary Impression: demise Condition: Fair Patient Instructions: Missed Miscarriage Referrals: GWENDOLYN DELGADILLO MD [facility] YOU HAVE RECEIVED A MEDICAL SCREENING EXAM AND THE RESULTS INDICATE THAT YOU DO NOT HAVE A CONDITION THAT REQUIRES URGENT TREATMENT IN THE EMERGENCY DEPARTMENT. FURTHER EVALUATION AND TREATMENT OF YOUR CONDITION CAN WAIT UNTIL YOU ARE SEEN IN YOUR DOCTORS OFFICE WITHIN THE NEXT 1-2 DAYS. IT IS YOUR RESPONSIBILITY TO MAKE AN APPOINTMENT FOR FOLOW-UP CARE. IF YOU HAVE A PRIMARY DOCTOR --you should call your primary doctor and schedule an appointment IF YOU DO NOT HAVE A PRIMARY DOCTOR YOU CAN CALL OUR PHYSICIAN REFERRAL HOTLINE AT IF YOU CAN NOT AFFORD TO SEE A PHYSICIAN YOU CAN CHOSE FROM THE FOLLOWING [facility] [address] [facility]. [facility] [address] [facility] [address] [facility] [address] [facility]. [facility] [address] [facility]. [facility] [address] [facility]. [facility] [address] Additional Instructions: Call your primary care doctor TOMORROW for an appointment during the next 1-2 days.See the doctor sooner or return here if your condition worsens before your appointment time. Follow up with Dr. Delgadillo in 1-2 days in office. VIHN COLÓN DO Jan 29, 2019 16:32
[2019-01-29 16:44] VITALS: BP 110/63; PULSE 68; RESP 16
== END 2019-01-29 16:46 | disposition home or self-care (01) ==
LOC: FTE 12:43
DX: O02.1 Missed abortion (principal)
CPT/HCPCS: 76801; 76817; Z7502

== ENCOUNTER 2019-02-12 10:31 | Emergency (ER) | payer SELFPAY ==
[~2019-02-12 10:31] MED LIST changes: +ACET500C5 PO
== END 2019-02-12 12:28 | disposition left against medical advice (07) ==
LOC: E/R 10:31
DX: Z53.21 Procedure and treatment not carried out due to patient leaving prior to being seen by health care provider (principal)

== ENCOUNTER 2019-03-22 14:19 | Emergency (ER) | payer SELFPAY ==
[~2019-03-22] VITALS: Ht 152.4 cm; Wt 62.6 kg
[2019-03-22 14:30] VITALS: BP 91/55; PULSE 58; RESP 18; Ht 152.4 cm; Wt 62.6 kg
== END 2019-03-22 16:40 | disposition left against medical advice (07) ==
LOC: FTE 14:19
DX: Z53.21 Procedure and treatment not carried out due to patient leaving prior to being seen by health care provider (principal)